=== PATIENT | female | born 1980 | race Caucasian/White ===

== ENCOUNTER 2017-01-04 22:01 | Emergency (ER) | payer MEDICARE ==
[~2017-01-04] VITALS: Ht 165.1 cm; Wt 71.0 kg
[2017-01-05] MEDS ORDERED: METOCLOPRAMIDE HCL 10MG/2ML VIAL IV STA (01:56)
[2017-01-05] MEDS ORDERED: SODIUM CHLORIDE 0.9% 1,000 ML IV ONE (01:56)
[2017-01-05 03:53] LABS: BASOPHILS % 0.5 % (0.0-2.0); EOSINOPHILS % 2.9 % (0.0-5.0); HEMOGLOBIN. 13.7 g/dL (12.0-16.0); LYMPHOCYTES % 40.9 % (20.0-50.0); MEAN CORPUSCULAR HEMOGLOBIN 29.1 pg (28.0-32.0); MEAN CORPUSCULAR VOLUME 87.4 fL (81.0-99.0); MEAN PLATELET VOLUME 8.4 fl (7.4-10.4); MONOCYTES % 13.4 % (2.0-8.0); NEUTROPHILS % 42.3 % (40.0-76.0); PLATELET 226 x1000/uL (130-400); RED BLOOD CELL COUNT 4.69 mill/uL (4.2-5.4); RED CELL DISTRIBUTION WIDTH 15.1 % (11.6-14.6)
[2017-01-05 03:53] LABS: CARBON DIOXIDE 25 mEq/L (21-32); CHLORIDE 105 mEq/L (98-107)
[2017-01-05 05:58] LABS: HCG SCREEN NEGATIVE
[2017-01-05] MEDS ORDERED: METOCLOPRAMIDE HCL 10MG/2ML VIAL IV NR (06:00)
[2017-01-05 06:03] LABS: INR 1.1; PROTHROMBIN TIME 11.1 sec (9.4-11.6)
[2017-01-05 07:37] LABS: CLARITY URINE CLEAR (CLEAR); COLOR URINE YELLOW (YELLOW); SPECIFIC GRAVITY URINE 1.029 (1.005-1.030)
[2017-01-05 07:38] LABS: GLUCOSE URINE NEGATIVE (NEGATIVE); KETONES URINE NEGATIVE (NEGATIVE); LEUKOCYTE ESTERASE URINE NEGATIVE (NEGATIVE); NITRITE URINE NEGATIVE (NEGATIVE); OCCULT BLOOD URINE TRACE (NEGATIVE); PROTEIN URINE NEGATIVE (NEGATIVE); UROBILINOGEN URINE 0.2 E.U./dL (0.2-1.0)
[2017-01-05 10:36] LABS: AMMONIA 13 uMol/L (<32)
[2017-01-05 10:46] LABS: CREATINE KINASE 153 IU/L (26-192); ETHANOL BLOOD < 10 mg/dL
[2017-01-05 11:19] LABS: *AMPHETAMINES SCREEN URINE NEGATIVE (NEGATIVE); *BARBITURATES SCREEN URINE NEGATIVE (NEGATIVE); *BENZODIAZEPINES SCREEN URINE NEGATIVE (NEGATIVE); *COCAINE SCREEN URINE NEGATIVE (NEGATIVE); CANNABINOID URINE SCREEN NEGATIVE (NEGATIVE); METHADONE URINE SCREEN NEGATIVE (NEGATIVE); OPIATES URINE SCREEN NEGATIVE (NEGATIVE); PHENCYCLIDINE URINE SCREEN NEGATIVE (NEGATIVE)
[2017-01-05 16:00] VITALS: BP 115/70
== END 2017-01-05 17:39 | disposition home or self-care (01) ==
LOC: ER 22:01 → CANRESERV 01-05 09:26 → ENRESERV 01-05 09:26 → CANBEDREQ 01-05 12:38 → ER 01-05 17:39
DX: A41.9 Sepsis, unspecified organism (principal); D64.9 Anemia, unspecified; M19.90 Unspecified osteoarthritis, unspecified site; I82.401 Acute embolism and thrombosis of unspecified deep veins of right lower extremity; Z88.0 Allergy status to penicillin; Z88.4 Allergy status to anesthetic agent; Z88.8 Allergy status to other drugs, medicaments and biological substances
CPT/HCPCS: 36415; 70450; 71010; 80053; 80305; 81001; 82140; 82550; 83605; 84443; 84703; 85025; 85610; 85651; 87086; 93005; 96361; 96374; 99285; G0482; J2765; J7030

== ENCOUNTER 2017-03-16 19:04 | Emergency (ER) | payer MEDICARE ==
[~2017-03-16] VITALS: Ht 162.6 cm; Wt 88.0 kg
[2017-03-16 19:07] VITALS: BP 112/85
== END 2017-03-16 23:32 | disposition left against medical advice (07) ==
LOC: ER 19:07
DX: R45.851 Suicidal ideations (principal); Z53.21 Procedure and treatment not carried out due to patient leaving prior to being seen by health care provider

== ENCOUNTER 2017-06-15 09:35 | Emergency (ER) | payer MEDICARE ==
[~2017-06-15] VITALS: Ht 165.1 cm; Wt 96.0 kg
[2017-06-15] MEDS ORDERED: ACETAMINOPHEN 325MG TABLET PO ONE (10:30)
[2017-06-15 12:39] VITALS: BP 124/69
== END 2017-06-15 12:40 | disposition home or self-care (01) ==
LOC: ER 09:46
DX: M25.561 Pain in right knee (principal); M25.571 Pain in right ankle and joints of right foot; F31.9 Bipolar disorder, unspecified; D64.9 Anemia, unspecified; F43.10 Post-traumatic stress disorder, unspecified; Z88.0 Allergy status to penicillin; Z59.0 Homelessness; Z86.718 Personal history of other venous thrombosis and embolism; Z90.49 Acquired absence of other specified parts of digestive tract; Z98.890 Other specified postprocedural states; Z88.8 Allergy status to other drugs, medicaments and biological substances; Z87.11 Personal history of peptic ulcer disease
CPT/HCPCS: 73562; 99284

== ENCOUNTER 2019-08-08 22:27 | Emergency (ER) | payer SELFPAY ==
[~2019-08-08] VITALS: Ht 165.1 cm; Wt 99.7 kg
[2019-08-08 23:16] VITALS: BP 149/83
== END 2019-08-08 23:37 | disposition home or self-care (01) ==
LOC: ER 22:27
DX: J06.9 Acute upper respiratory infection, unspecified (principal); R05 Cough; R19.7 Diarrhea, unspecified; D64.9 Anemia, unspecified; F41.9 Anxiety disorder, unspecified; F31.9 Bipolar disorder, unspecified; F20.9 Schizophrenia, unspecified; Z90.49 Acquired absence of other specified parts of digestive tract; Z88.0 Allergy status to penicillin
CPT/HCPCS: 99283

== ENCOUNTER 2023-03-30 16:53 | Emergency (ER) | payer MEDICARE, MEDICAID ==
[~2023-03-30] VITALS: Ht 165.1 cm; Wt 106.6 kg
[2023-03-30 17:06] VITALS: BP 141/72; PULSE 98; RESP 16; TEMP 98.1; O2SAT 98
[2023-03-30] MEDS ORDERED: TOPUD PO (21:54)
== END 2023-03-30 22:36 | disposition home or self-care (01) ==
LOC: ER 16:53
DX: M25.561 Pain in right knee (principal); I10 Essential (primary) hypertension; E11.9 Type 2 diabetes mellitus without complications; J45.909 Unspecified asthma, uncomplicated; Z88.0 Allergy status to penicillin; Z88.4 Allergy status to anesthetic agent; Z88.8 Allergy status to other drugs, medicaments and biological substances; W18.30XA Fall on same level, unspecified, initial encounter; Y93.9 Activity, unspecified; Y92.89 Other specified places as the place of occurrence of the external cause; Y99.8 Other external cause status
CPT/HCPCS: 72170; 73552; 73560; 73590; 93971; 99284